=== PATIENT | male | born 1955 | race Caucasian/White ===

== ENCOUNTER 2018-07-11 14:58 | Emergency (ER) | payer MEDICARE, OTHER ==
[~2018-07-11] VITALS: Ht 177.8 cm; Wt 81.7 kg
[~2018-07-11 14:58] MED LIST: ASPI81CH PO; TAMS.4ER PO; ZESTORETIC 20-1 EAC1 PO
[2018-07-11] MEDS ORDERED: Pepcid20 MG PO (15:54)
[2018-07-11] MEDS ORDERED: BENADRYL25 MG PO (15:54)
[2018-07-11] MEDS ORDERED: Prednisone50 MG PO (15:54)
[2018-07-11] MEDS ORDERED: EPIPEN 2-P0.3 MG/0.3 IM (16:21)
== END 2018-07-11 19:29 | disposition home or self-care (01) ==
LOC: ER 14:58
DX: T78.3XXA Angioneurotic edema, initial encounter (principal); Z79.899 Other long term (current) drug therapy
CPT/HCPCS: 36415; 96374; 96375; 99283-25; J1100; J1200

== ENCOUNTER 2020-05-02 07:23 | Day surgery (SDC) | payer MEDICARE, OTHER ==
[~2020-05-02] VITALS: Ht 177.8 cm; Wt 81.4 kg
[~2020-05-02 07:23] MED LIST changes: +BENADRYL25 MG PO; +EPIPEN 2-P0.3 MG/0.3 IM; +FLUT1DIS2 INH; +HYDHCL25 PO; +Pepcid20 MG PO; +Prednisone50 MG PO; +Ventolin/Prove6.7 GM INH
== END 2020-05-02 09:35 | disposition home or self-care (01) ==
LOC: ORSCSDS 07:23
PROVIDERS: Surgery
PROC: 0DBL8ZX Excision of Transverse Colon, Via Natural or Artificial Opening Endoscopic, Diagnostic (ICD-10-PCS; principal; 2020-05-02 08:30)
PROC: 0DBH8ZX Excision of Cecum, Via Natural or Artificial Opening Endoscopic, Diagnostic (ICD-10-PCS; principal; 2020-05-02 08:30)
PROC: 0DBN8ZX Excision of Sigmoid Colon, Via Natural or Artificial Opening Endoscopic, Diagnostic (ICD-10-PCS; principal; 2020-05-02 08:30)
DX: Z12.11 Encounter for screening for malignant neoplasm of colon (principal); D12.0 Benign neoplasm of cecum; D12.3 Benign neoplasm of transverse colon; D12.5 Benign neoplasm of sigmoid colon; K57.30 Diverticulosis of large intestine without perforation or abscess without bleeding; E11.9 Type 2 diabetes mellitus without complications; Z79.899 Other long term (current) drug therapy; I10 Essential (primary) hypertension; J45.909 Unspecified asthma, uncomplicated; E78.5 Hyperlipidemia, unspecified
CPT/HCPCS: 88305; J0330; J0461; J2405; J2704; J7120

== ENCOUNTER → 2020-07-23 | Outpatient (CLI) | payer MEDICARE, OTHER | END | disposition home or self-care (01) | LOC: LAB SHORT 14:25 → LAB 14:25 | DX: L03.011 Cellulitis of right finger (principal) | CPT/HCPCS: 87070; 87075; 87076; 87077; 87147; 87185; 87186; 87205 ==

== ENCOUNTER → 2022-09-23 | Outpatient (CLI) | payer MEDICARE, OTHER ==
[~2022-09-23] MED LIST changes: +AMLODIPINE BESY10 MG PO; +ROSUVASTATIN CAL5 MG PO
[2022-09-23 18:03] LABS: BASOPHILS ABSOLUTE AUTO 0.03 K/mm3 (0.00-0.23); BASOPHILS PERCENT AUTO 1 % (0-2); EOSINOPHILS ABSOLUTE AUTO 0.45 K/mm3 (0.00-0.68); EOSINOPHILS PERCENT AUTO 8 % (0-6); Hematocrit 42.5 % (37.0-53.0); Hemoglobin 14.4 g/dL (13.5-17.5); IMMATURE GRAN ABSOLUTE AUTO 0.01 K/mm3 (0.00-0.10); IMMATURE GRAN PERCENT AUTO 0 % (0-1); LYMPHOCYTES ABSOLUTE AUTO 1.68 K/mm3 (0.84-5.20); LYMPHOCYTES PERCENT AUTO 28 % (21-46); MONOCYTES ABSOLUTE AUTO 0.62 K/mm3 (0.16-1.47); MONOCYTES PERCENT AUTO 10 % (4-13); Mean Corpuscular HGB 30.3 pg (26.0-34.0); Mean Corpuscular HGB Conc 33.9 g/dL (31.5-36.5); Mean Corpuscular Volume 90 fL (80-100); Mean Platelet Volume 9.9 fL (9.1-12.4); NEUTROPHILS ABSOLUTE AUTO 3.18 K/mm3 (1.96-9.15); NEUTROPHILS PERCENT AUTO 53 % (41-73); Platelet Count 206 K/mm3 (150-400); RDW Coefficient Variation 12.4 % (11.7-14.2); RDW Standard Deviation 41.2 fL (35.1-46.3); Red Blood Cell Count 4.75 M/mm3 (4.30-5.90); White Blood Cell Count 5.97 K/mm3 (4.00-11.30)
[2022-09-23 19:23] LABS: Albumin, Blood 3.9 g/dL (3.4-5.0); Bilirubin, Total 0.4 mg/dL (0.1-1.0); Calcium, Blood 9.2 mg/dL (8.5-10.1); Globulin, Blood 3.9 g/dL (2.2-4.0); Potassium, Blood 4.5 mmol/L (3.5-5.5); Total Protein, Blood 7.8 g/dL (6.4-8.2)
== END | disposition home or self-care (01) ==
LOC: LAB SHORT 15:55 → LAB 15:55
PROVIDERS: Hospitalist
DX: I10 Essential (primary) hypertension (principal)
CPT/HCPCS: 80053; 85025

== ENCOUNTER 2023-08-10 08:02 | Day surgery (SDC) | payer MEDICARE, OTHER ==
[~2023-08-10] VITALS: Ht 177.8 cm; Wt 79.5 kg
[2023-08-10] MEDS ORDERED: Lactated Ringer's 1,000 ML IV ONE ×2 (08:08→08:48)
[2023-08-10] MEDS ORDERED: propofoL 50 ML IV ONE (08:08)
[2023-08-10] MEDS ORDERED: ASPI81CH (08:30)
[2023-08-10 10:15] VITALS: BP 103/63
== END 2023-08-10 10:15 | disposition home or self-care (01) ==
LOC: ORSCSDS 08:02
PROVIDERS: Surgery
PROC: 0DJD8ZZ Inspection of Lower Intestinal Tract, Via Natural or Artificial Opening Endoscopic (ICD-10-PCS; principal; 2023-08-10 09:15)
DX: Z12.11 Encounter for screening for malignant neoplasm of colon (principal); Z86.010 Personal history of colon polyps; K57.30 Diverticulosis of large intestine without perforation or abscess without bleeding; E11.9 Type 2 diabetes mellitus without complications; J45.909 Unspecified asthma, uncomplicated; E78.5 Hyperlipidemia, unspecified; G47.30 Sleep apnea, unspecified; Z79.82 Long term (current) use of aspirin; Z79.899 Other long term (current) drug therapy
CPT/HCPCS: 82947; J2704; J7120